=== PATIENT | female | born 1965 ===

== ENCOUNTER 2023-10-10 11:53 | Emergency (ER) | payer BC ==
[~2023-10-10] VITALS: Ht 152.4 cm; Wt 68.0 kg
[~2023-10-10 11:53] MED LIST: ACEDIPPM PO; CALCAVITD PO; CIPR500 PO; CYAN500 PO; FERSU300; NAPR220 PO; PHENA100 PO; SERT25 PO; [UNRECOGNIZED DRUG - OTHER] PO
[2023-10-10] MEDS ORDERED: ALPRAZOLAM0.5 M1 PO (12:24)
[2023-10-10] MEDS ORDERED: REMERON1510 PO (12:24)
[2023-10-10] MEDS ORDERED: TRAZ100 PO (12:25)
[2023-10-10 12:28] LABS: Source, Urine Clean Catch
[2023-10-10] MEDS ORDERED: NS 1,000 ML IV SCH (12:40)
[2023-10-10 12:42] LABS: Appearance, Urine Clear (Clear); Bilirubin, Urine Neg (Neg); Blood, Urine 2+ (Neg); Glucose Qualitative, Urine 4+ (Neg); Ketones, Urine Neg (Neg); Leukocyte Esterase, Urine Neg (Neg); Nitrite, Urine Neg (Neg); Protein, Urine Neg (Neg); Specific Gravity, Urine 1.015 (1.003-1.022); Urobilinogen, Urine NORM (Normal)
[2023-10-10 12:50] LABS: Color, Urine Pale Yellow (P-Yellow)
[2023-10-10 12:51] LABS: Bacteria Not Seen /hpf; Squamous Epithelial Cells Not Seen /hpf (Few); White Blood Cells, Urine Not Seen /hpf (0-5)
[2023-10-10 12:55] LABS: BASOPHILS ABSOLUTE AUTO 0.04 K/mm3 (0.00-0.23); BASOPHILS PERCENT AUTO 0 % (0-2); EOSINOPHILS ABSOLUTE AUTO 0.02 K/mm3 (0.00-0.68); EOSINOPHILS PERCENT AUTO 0 % (0-6); Hematocrit 40.8 % (33.0-51.0); IMMATURE GRAN ABSOLUTE AUTO 0.12 K/mm3 (0.00-0.10); IMMATURE GRAN PERCENT AUTO 1 % (0-1); LYMPHOCYTES ABSOLUTE AUTO 1.73 K/mm3 (0.84-5.20); LYMPHOCYTES PERCENT AUTO 11 % (21-46); MONOCYTES ABSOLUTE AUTO 0.92 K/mm3 (0.16-1.47); MONOCYTES PERCENT AUTO 6 % (4-13); Mean Corpuscular HGB 29.7 pg (26.0-34.0); Mean Corpuscular HGB Conc 34.3 g/dL (31.5-36.5); Mean Corpuscular Volume 87 fL (80-100); Mean Platelet Volume 9.4 fL (9.1-12.4); NEUTROPHILS ABSOLUTE AUTO 13.43 K/mm3 (1.96-9.15); NEUTROPHILS PERCENT AUTO 83 % (41-73); Platelet Count 239 K/mm3 (150-400); RDW Coefficient Variation 12.3 % (11.7-14.2); RDW Standard Deviation 39.8 fL (35.1-46.3); Red Blood Cell Count 4.71 M/mm3 (3.80-5.20); White Blood Cell Count 16.26 K/mm3 (4.00-11.30)
[2023-10-10 13:00] LABS: PCO2 Venous 34 mmHg (38-42); pH Blood Venous 7.46 (7.34-7.37)
[2023-10-10 13:01] LABS: Base Excess Venous 0.3 mmol/L; Bicarbonate Venous 25.2 mmol/L (24.0-30.0)
[2023-10-10 13:14] LABS: Albumin, Blood 3.8 g/dL (3.4-5.0); Albumin/Globulin Ratio 1.1 (0.8-1.8); Bilirubin, Total 0.4 mg/dL (0.1-1.0); Bun/Creatinine Ratio 45.3 (12.0-20.0); Calcium, Blood 9.4 mg/dL (8.5-10.1); Creatinine, Blood 0.49 mg/dL (0.40-1.00); Globulin, Blood 3.5 g/dL (2.2-4.0); Total Protein, Blood 7.3 g/dL (6.4-8.2)
[2023-10-10] MEDS ORDERED: METF500 PO (13:55)
[2023-10-10] MEDS ORDERED: LOSA25 PO (13:55)
[2023-10-10 14:00] VITALS: BP 175/110
== END 2023-10-10 14:27 | disposition home or self-care (01) ==
LOC: ER 11:53
PROVIDERS: Emergency Medicine; Student in an Organized Health Care Education/Training Program
DX: E11.65 Type 2 diabetes mellitus with hyperglycemia (principal); I10 Essential (primary) hypertension; D72.829 Elevated white blood cell count, unspecified; R81 Glycosuria; F41.9 Anxiety disorder, unspecified; Z79.899 Other long term (current) drug therapy
CPT/HCPCS: 36415; 80053; 81001; 82803; 82947; 83036; 85025; 93005; 93010; 96360; 99284-25; J7030